=== PATIENT | male | born 1950 | race Caucasian/White ===

== ENCOUNTER → 2017-04-21 | Outpatient (CLI) | payer MEDICARE, OTHER ==
--- NOTE | 2017-04-21 14:26 | KCIC ---
INDICATION: Low back pain with left leg numbness. Recent onset. Pain in both hips. TECHNIQUE: Sagittal T1, sagittal T2, sagittal STIR, axial T1, and axial T2 sequences are provided. Comparison is made to radiographs from April 17, 2017. FINDINGS: There is 4 mm of retrolisthesis at L1-L2 and 7 mm of anterolisthesis at L4-L5. There is endplate edema which appears degenerative at L3-L4 and L4-L5. There is no worrisome marrow lesion. There is a Schmorl's node in the inferior endplate of L1. There is diffuse disc desiccation with narrowing of disc height which is most notable posteriorly at L3-L4. The conus medullaris is normal in signal intensity and in position. The numbering system assumes 5 lumbar type vertebral bodies. Findings by individual level are as follows: L1-L2: Disc osteophyte complex is noted along with facet hypertrophy which is greater on the left. There is mild canal stenosis, midline AP diameter of the thecal sac still 11 mm. There is [id number] bilateral foraminal narrowing. L2-L3: Minimal disc bulge and facet hypertrophy are noted with minimal left foraminal narrowing. L3-L4: In addition to a diffuse disc bulge there is a right paracentral extrusion-type herniation migrating inferiorly measuring 16 mm craniocaudal, 12 mm transverse, and 8 mm AP. There is facet and ligamentum flavum hypertrophy. There is mild canal stenosis at the level of the interspace, midline AP diameter of the thecal sac 11 mm. There is also right lateral recess narrowing secondary to the herniation. There is moderate left and moderate to severe right foraminal narrowing. L4-L5: There is unroofing of the disc. There is marked facet hypertrophy. There is bilateral lateral recess narrowing. There is mild canal stenosis with midline AP diameter of the thecal sac 11-12 mm. Foraminal narrowing is moderate to severe. L5-S1: Disc bulge and facet hypertrophy are noted with mild lateral recess narrowing and [id number] bilateral foraminal narrowing. IMPRESSION: 1. Degenerative disc disease and facet and ligamentum flavum hypertrophy are noted throughout the lumbar spine. There are levels of mild canal stenosis and high-grade foraminal narrowing, as described above. 2. At L3-L4 there is a large right paracentral extrusion-type herniation migrating inferiorly narrowing the right lateral recess. Electronically signed by: Cristiano Velasquez MD (04/21/2017 2:23 PM) [id number]
== END | disposition home or self-care (01) ==
LOC: KCIC MRI 13:05
PROVIDERS: ATTEND Physician Assistant Surgical
DX: M51.36 Other intervertebral disc degeneration, lumbar region (principal); M48.06 Spinal stenosis, lumbar region; M25.552 Pain in left hip; M25.551 Pain in right hip; R20.0 Anesthesia of skin
CPT/HCPCS: 72148

== ENCOUNTER → 2018-03-06 | Outpatient (CLI) | payer OTHER | END | disposition home or self-care (01) | LOC: KCIC CT 10:46 | DX: N20.0 Calculus of kidney (principal); M43.16 Spondylolisthesis, lumbar region; I70.0 Atherosclerosis of aorta; Z87.442 Personal history of urinary calculi | CPT/HCPCS: 74176 ==